=== PATIENT | female | born 1965 | race Caucasian/White ===

== ENCOUNTER 2017-01-20 11:59 | Day surgery (SDC) | payer BC ==
[~2017-01-20 11:59] MED LIST: RINGER'S SOLUTION,LACTATED 1,000 ML IV PRN
[2017-01-20] MEDS ORDERED: RINGER'S SOLUTION,LACTATED 1,000 ML IV ONE ×2 (14:43)
--- NOTE | 2017-01-20 15:01 | OR ---
Operative Report - Dictated Report Narrative: Date: 01/20/2017 Preop dx: Epigastric pain, screen for colon cancer Postop dx: Gastric polyps, External hemorrhoidal skin tags, external hemorrhoid left mid column, internal hemorrhoid, hypertrophied anal papilla. Procedure: Esophagogastroduodenoscopy with biopsy, Total colonoscopy Staff surgeon: Srinath Adamson MD Anesthesia: MAC per [employer] EBL: none Specimen: CLOtest, Antrum, Gastric polyp. Description: After informed consent a bite block was inserted and IV sedation administered per [employer]. A flexible video endoscope was inserted through the bite block, through the posterior pharynx and into the esophagus under direct vision. The scope was then advanced through the esophagus, stomach and into the duodenum. The duodenum was grossly normal without ulceration. The scope was withdrawn into the stomach. There was no gastritis or ulcers noted. A CLOtest biopsy with cold forceps was performed. An antral biopsy was performed with cold forceps. There were numerous gastric polyps and a appliance service representative biopsy of one was performed with cold forceps. Retroflex view was normal. Endoscop was withdrawn into the distal esophagus. No abnormalities were seen. Remainder of the esophagus was unremarkable. The patient was then rolled to the left later decubitus position. Anal inspection revealed hemorrhoidal skin tags anteriorly and right mid-column. An external hemorrhoid was noted left mid-column. A flexible fiberoptic video colonoscope was introduced and advanced under direct viwsion without difficulty to the cecum. The usual landmarks were identified. Preparation was good and good views were obtained. The findings were of a normal cecum, ascending colon, hepatic flexure, transverse colon, splenic flexure, descending colon, sigmoid colon, and rectum. The mucosal color, vasculature and texture were normal throughout. No suspicious masses were seen. Retroflex view shows one internal hemorrhoid with associated hypertrophic anal papilla. The patient tolerated these procedures well without apparent complications and was discharged from the endoscopy suite in stable condition.
[2017-01-20 15:53] VITALS: BP 129/83
== END 2017-01-20 12:00 | disposition home or self-care (01) ==
LOC: AMB 11:59
PROVIDERS: ATTEND Specialist
PROC: 0DB68ZX Excision of Stomach, Via Natural or Artificial Opening Endoscopic, Diagnostic (ICD-10-PCS; principal; 2017-01-20 13:10)
PROC: 0DJD8ZZ Inspection of Lower Intestinal Tract, Via Natural or Artificial Opening Endoscopic (ICD-10-PCS; 2017-01-20 13:10)
DX: Z12.11 Encounter for screening for malignant neoplasm of colon (principal); K31.7 Polyp of stomach and duodenum; K64.8 Other hemorrhoids; K64.4 Residual hemorrhoidal skin tags; E11.9 Type 2 diabetes mellitus without complications; E78.5 Hyperlipidemia, unspecified; E03.9 Hypothyroidism, unspecified; J45.909 Unspecified asthma, uncomplicated; E53.8 Deficiency of other specified B group vitamins; Z68.34 Body mass index [BMI] 34.0-34.9, adult
CPT/HCPCS: 43239; G0121